=== PATIENT | male | born 1995 | race Caucasian/White ===

== ENCOUNTER 2019-03-14 23:21 | Emergency (ER) | payer BC ==
[2019-03-14] MEDS ORDERED: TETANUS & DIPHTHERIA TOX,ADULT 0.5 ML VIAL ONE (23:58)
[2019-03-14] MEDS ORDERED: ONDANSETRON 4 MG/2 ML VIAL ONE (23:58)
[2019-03-14] MEDS ORDERED: MORPHINE 2 MG/ML SYR ONE (23:58)
[2019-03-14] MEDS ORDERED: CEFAZOLIN/SWI 1gm 1 GM/10 ML SYR ONE (23:59)
[2019-03-15 00:24] LABS: Absolute Lymphocytes (CBC) 1.9 K/uL (0.7-4.9); Absolute Monocytes 0.7 K/uL (0.1-1.3); Absolute Neutrophil 7.7 K/uL (1.8-8.0); Basophils % 0.5 % (0-1.3); Eosinophils % 2.2 % (0-4.4); Hematocrit 41.5 % (39.6-49.0); Lymphocytes % 17.7 % (15.3-44.8); MPV 9.5 fL (7.6-11.3); Monocytes % 6.3 % (3.3-12.3); RBC Red Blood Cell Count 4.52 M/uL (4.33-5.43)
[2019-03-15 00:49] LABS: ALT/SGPT 21 U/L (12-78); AST/SGOT 17 U/L (15-37); Albumin 3.4 g/dL (3.4-5.0); Alkaline Phosphatase 63 U/L (45-117); BUN Blood Urea Nitrogen 23 mg/dL (7-18); Bicarbonate 29 mmol/L (21-32); Bilirubin Total 1.2 mg/dL (0.2-1.0); Glucose Level 80 mg/dL (74-106); Potassium 3.8 mmol/L (3.5-5.1); Protein, Total 7.3 g/dL (6.4-8.2); Sodium Level 143 mmol/L (136-145)
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
[2019-03-15] MEDS ORDERED: CEPHALEXIN 250 MG CAP ONE (02:09)
[2019-03-15] MEDS ORDERED: MORPHINE 2 MG/ML SYR ONE (02:10)
[2019-03-15] MEDS ORDERED: HYDROCODONE/APAP 10/325 TAB ONE (02:42)
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
== END 2019-03-15 02:36 | disposition home or self-care (01) ==
LOC: ER 23:21
PROC: 2W3QX1Z Immobilization of Right Lower Leg using Splint (ICD-10-PCS; principal; 2019-03-14)
DX: S62.326B Displaced fracture of shaft of fifth metacarpal bone, right hand, initial encounter for open fracture (principal); W34.00XA Accidental discharge from unspecified firearms or gun, initial encounter; Y92.009 Unspecified place in unspecified non-institutional (private) residence as the place of occurrence of the external cause; F17.210 Nicotine dependence, cigarettes, uncomplicated
CPT/HCPCS: 36415; 80053; 85025; 90471; 90714; 96365; 96375; 99285; J0690; J2270; J2405